=== PATIENT | male | born 1940 | race Caucasian/White ===

== ENCOUNTER 2021-08-27 18:54 | Emergency (ER) | payer OTHER, MEDICARE ==
[2021-08-27 19:39] LABS: #Eosinphils 0.2 thou/uL (0.0-0.7); #Lymphocytes 1.1 thou/uL (1.20-3.40); #Monocytes 0.7 thou/uL (0.11-0.59); #Neutrophils 7.6 thou/uL (1.40-6.50); %Basophils 0.2 % (0.0-1.0); %Lymphocytes 11.4 % (21.0-51.0); %Monocytes 6.9 % (0.0-10.0); %Neutrophils 79.5 % (42.0-75.0); Mean Corpuscular HGB CONC 33.6 g/dL (32.0-36.0); Mean Corpuscular Volume 89.2 fL (78.0-98.0); Mean Platelet Volume 7.3 fL (7.4-10.4); Platelet Count 222 thou/uL (130-400); White Blood Cell (WBC) Count 9.6 thou/uL (4.8-10.8)
[2021-08-27 19:54] LABS: ALT (SGPT) 23 U/L (8-55); AST (SGOT) 34 U/L (5-34); Albumin 3.6 g/dL (3.4-4.8); Alkaline Phosphatase 56 U/L (40-110); Anion Gap 11 mmol/L (10-20); BUN (Urea Nitrogen) 15 mg/dL (8.4-25.7); Bilirubin, Total 0.6 mg/dL (0.2-1.2); Calc. Creatinine Clearance 0 mL/min (70-130); Calcium 8.5 mg/dL (7.8-10.44); Carbon Dioxide 22 mmol/L (23-31); Chloride 95 mmol/L (98-107); Globulin 3.3 g/dL (2.4-3.5); Glucose 133 mg/dL (83-110); Magnesium 1.9 mg/dL (1.6-2.6); Potassium 4.2 mmol/L (3.5-5.1); Protein, Total 6.9 g/dL (5.8-8.1); Sodium 124 mmol/L (136-145)
[2021-08-27 20:46] LABS: Bilirubin Negative (Negative); Blood, Urine Negative (Negative); Clarity Clear (Clear); Glucose, Urine (Dipstick) Normal (Negative); Ketone, Urine Negative (Negative); Leukocyte Negative Leu/uL (Negative); Nitrite Negative (Negative); Protein, Urine (Dipstick) 20 mg/dL (Neg-Trace); Specific Gravity, Urine 1.023 (1.002-1.036); Urobilinogen 6 mg/dL (Less than 2)
== END 2021-08-28 02:33 | disposition short-term general hospital (02) ==
LOC: ERS 18:54
DX: S01.01XA Laceration without foreign body of scalp, initial encounter (principal); E87.1 Hypo-osmolality and hyponatremia; S70.01XA Contusion of right hip, initial encounter; R29.6 Repeated falls; W01.198A Fall on same level from slipping, tripping and stumbling with subsequent striking against other object, initial encounter; Z79.899 Other long term (current) drug therapy
CPT/HCPCS: 36415; 70450; 70486; 71045; 72125; 72131; 72170; 80053; 81003; 83735; 84484; 85025; 93005